=== PATIENT | female | born 1940 ===

== ENCOUNTER 2024-02-06 12:26 | Emergency (ER) | payer MEDICARE, OTHER ==
[2024-02-06 13:55] LABS: Hematocrit 44.1 % (34.9-44.5); Hemoglobin 14.1 g/dL (12.0-15.5); Mean Corpuscular Hemoglobin 29.9 pg (27.0-33.0); Mean Corpuscular Volume 93.4 fL (81.6-98.3); Mean Platelet Volume 11.4 fL (7.4-10.4); Platelet Count 167 10x3/uL (150-450); RBC Distribution Width 12.9 % (11.5-14.5); Red Blood Cell (RBC) Count 4.72 10x6/uL (3.90-5.03); White Blood Cell (WBC) Count 4.8 10x3/uL (3.5-10.5)
[2024-02-06 13:59] LABS: MDiff Complete? YES; PTT 31.9 sec (22.0-33.0)
[2024-02-06 14:02] LABS: ALT (SGPT) 19 U/L (8-55); AST (SGOT) 27 U/L (5-34); Albumin 3.5 g/dL (3.4-4.8); Alkaline Phosphatase 63 U/L (40-110); Anion Gap 16 mmol/L (10-20); BUN (Urea Nitrogen) 26 mg/dL (9.8-20.1); Bilirubin, Total 0.3 mg/dL (0.2-1.2); Calc. Creatinine Clearance 0 mL/min (70-130); Carbon Dioxide 26 mmol/L (23-31); Chloride 97 mmol/L (98-107); Estimated GFR 52; Globulin 3.6 g/dL (2.4-3.5); Glucose 149 mg/dL (83-110); Magnesium 2.1 mg/dL (1.6-2.6); Potassium 3.7 mmol/L (3.5-5.1); Protein, Total 7.1 g/dL (5.8-8.1); Sodium 135 mmol/L (136-145)
[2024-02-06 14:06] LABS: Troponin I Less than 0.010 ng/mL (< 0.028)
[2024-02-06 15:33] LABS: Bilirubin Neg (Negative); Blood, Urine Negative (Negative); Clarity Slightly Cloudy (Clear); Glucose, Urine (Dipstick) Normal (Negative); Ketone, Urine Negative (Negative); Leukocyte 500 (Negative); Nitrite Negative (Negative); Protein, Urine (Dipstick) 30 mg/dl (Neg-Trace); Urobilinogen Normal mg/dL (Less than 2)
[2024-02-06 16:05] LABS: Eosinophils 1 % (0-10); Lymphocytes 27 % (21-51); Monocytes 21 % (0-10)
[2024-02-06 16:06] LABS: Neutrophil 51 % (42-75); Platelet Adequacy Comment Appears Adequate; RBC Morph Comment Within Normal Limits
[2024-02-06 16:27] LABS: CAUTI Indications for Culture Pelvic or flank pain; RBC/HPF 0-3 HPF (0-3)
[2024-02-06 16:28] LABS: Bacteria/HPF 2+ HPF (None Seen); Mucous/LPF 2+ LPF (<2+); Transitional Epithelial 0-3 HPF (None Seen)
[2024-02-06 16:31] LABS: White Blood Cell Cast 0-3 LPF (None Seen)
[2024-02-06 16:32] LABS: Urine Culture Reflex Yes Yes
[2024-02-06] MEDS ORDERED: Oseltamivir 75 MG CAP PO SCH (16:45)
[2024-02-06] MEDS ORDERED: Acetaminophen 500 MG TAB ONE (17:04)
[2024-02-06] MEDS ORDERED: cefTRIAXone (ROCEPHIN) 1 GM VIAL ONE (17:04)
== END 2024-02-07 00:27 | disposition short-term general hospital (02) ==
LOC: CSHERS 12:26
DX: J10.1 Influenza due to other identified influenza virus with other respiratory manifestations (principal); J96.01 Acute respiratory failure with hypoxia; R73.03 Prediabetes
CPT/HCPCS: 71046; 80053; 81001; 83605; 83735; 83880; 84484; 85025; 85610; 85730; 87086; 93005; 94760; 96374; 99284; J0696